=== PATIENT | male | born 1965 | race Caucasian/White ===

== ENCOUNTER 2016-10-31 10:34 | Emergency (ER) | payer MEDICAID, OTHER ==
[~2016-10-31] VITALS: Ht 165.1 cm; Wt 85.5 kg
[~2016-10-31 10:34] MED LIST: IBUP-1542 PO; TYL650R PR
[2016-10-31 10:37] VITALS: Ht 165.1 cm; Wt 85.5 kg
[2016-10-31] MEDS ORDERED: METOCLOPRAMIDE 10 MG INJ IV STA (11:14)
[2016-10-31] MEDS ORDERED: DIPHENHYDRAMINE 50 MG INJ IV STA (11:14)
[2016-10-31 11:26] LABS: ADD SCAN DIFF NO
[2016-10-31 11:30] LABS: BASOPHILS % 0.5 % (0.0-2.0); EOSINOPHILS # 0.2 10^3/ul (0.0-0.5); EOSINOPHILS % 2.6 % (0.0-7.0); HEMATOCRIT 45.5 % (42.0-52.0); HEMOGLOBIN 15.4 g/dl (14.0-18.0); LYMPHOCYTES # 1.7 10^3/ul (0.8-2.9); LYMPHOCYTES % 23.7 % (15.0-51.0); MEAN CORPUSCULAR HEMOGLOBIN 27.4 pg (29.0-33.0); MEAN CORPUSCULAR HGB CONC 33.8 g/dl (32.0-37.0); MEAN CORPUSCULAR VOLUME 80.8 fl (82.0-101.0); MEAN PLATELET VOLUME 9.7 fl (7.4-10.4); MONOCYTE # 0.8 10^3/ul (0.3-0.9); MONOCYTES % 10.3 % (0.0-11.0); NEUTROPHIL # 4.6 10^3/ul (1.6-7.5); NEUTROPHILS % 62.5 % (39.0-77.0); PLATELET COUNT 296 10^3/UL (140-415); RED BLOOD COUNT 5.63 10^6/ul (4.70-6.10); RED CELL DISTRIBUTION WIDTH 13.4 % (11.5-14.5); WHITE BLOOD COUNT 7.4 10^3/ul (4.8-10.8)
[2016-10-31] MEDS ORDERED: DEXAMETHASONE 10 MG/ML 1 ML INJ IV ONE (11:30)
[2016-10-31 11:47] LABS: CALCIUM 9.5 mg/dl (8.4-10.2); CREATININE 1.11 mg/dl (0.61-1.24); INR 0.93; POTASSIUM 4.2 mmol/L (3.5-5.1); PROTIME 12.5 Sec (12.2-14.2)
[2016-10-31 11:48] LABS: PARTIAL THROMBOPLASTIN TIME 28.5 Sec (25.0-35.0)
[2016-10-31] MEDS ORDERED: IOHEXOL 100 ML ONE (12:08)
[2016-10-31] MEDS ORDERED: SOD CHLORIDE 0.9% 100 ML ONE (12:08)
--- NOTE | 2016-10-31 12:26 | RADRPT ---
PROCEDURE: CT brain without contrast CLINICAL INDICATION: Headaches, dizziness TECHNIQUE: CT of the brain without contrast performed on a multidetector CT scanner, with multiplan ar reformats. One or more of the following dose reduction techniques were used: Automated exposure control, adjustment in mA and / or kV according to patient size, use of iterative reconstructive carrington hnique. CTDIvol = 44 mGy; DLP = 720 mGy-cm. COMPARISON: None available FINDINGS: No acute intracranial hemorrhage is identified. No extra-axial fluid collection is seen. There is no mass effect. No midline shift is identified. The ventricles and sulci are mildly enlarged compatible with volume loss. The density of the brain is unremarkable. Villafuerte-white differentiation is preserved. Osseous structures are unremarkable. Left maxillary sinus fluid level is visualized.. IMPRESSION: 1. No evidence of acute intracranial pathology. 2. Mild volume loss. 3. Left maxillary sinus disease. RPTAT: VV .Seferino Hearn MD, MD Date Time Electronically viewed and signed by .Seferino Hearn MD, on 10/31/2016 12:25 .O/
--- NOTE | 2016-10-31 13:10 | RADRPT ---
PROCEDURE: CTA Head. CLINICAL INDICATION: Headache. Dizziness. Evaluate for aneurysm. TECHNIQUE: CTA of the head was obtained with 1 mm axial images. Sagittal and coronal reformations and MIPs were provided. The administered radiation dose was CTDI vol = 54.25, 34.20 mGy, DLP = 27.1 3, 656.5 mGy-cm. Images were obtained prior following the intravenous contrast administration of 85 cc of Omnipaque 350 contrast. Coronal and sagittal as well as maximal intensity projection reformat ions were obtained. One or more of the following dose reduction techniques were used: Automated expo sure control, Adjustment of the mA and/or kV according to patient size, or Use of iterative reconstr uction technique. COMPARISON: There are no similar studies submitted for comparison. Noncontrast CT of the head from he same day. FINDINGS: CTA head: Carotid arteries: There are minimal vascular calcifications within the right supraclinoid carotid ar trisha. Patent bilaterally without evidence of stenosis. Anterior cerebral arteries: Patent bilaterally without evidence of stenosis. Middle cerebral arteries: Patent bilaterally without evidence of stenosis. Posterior cerebral arteries: Patent bilaterally without evidence of stenosis. Anterior communicating artery: Present. Posterior communicating arteries: Present bilaterally and greater on the left. The left P1 segment i s hypoplastic. Basilar artery: Patent without evidence of stenosis. Vertebral arteries: Patent bilaterally without evidence of stenosis. Vertebral artery dominance: Right. Aneurysm: There is vascular prominence of the origin of the left posterior superior communicating a rtery suggestive of a diverticulum and less likely aneurysm. Otherwise no definite aneurysm is iden tified. Venous sinuses: Patent. IMPRESSION: 1. Vascular prominence of the origin of the left posterior superior communicating artery suggestive of a diverticulum and less likely aneurysm. Otherwise no definite aneurysm is identified. 2. No evidence of intracranial arterial stenosis. Further findings as detailed above. RPTAT: PP .Aldo Reeves MD, MD Date Time Electronically viewed and signed by .Aldo Reeves MD, on 10/31/2016 13:10 .F/
--- NOTE | 2016-10-31 13:18 | ERD ---
ER Documentation Chief Complaint Date/Time DATE: 10/31/16 TIME: 13:14 Chief Complaint HEDACHE ON AND OFF X 10 DAYS , RT SIDE NUMBNESS X 15 MTS HPI This 51-year-old male presents to the emergency room for evaluation of a headache that he has had intermittently on and off for the past 10 days. The patient localizes the headache to the back of his head and states it is worse with exertion. He states that today he was having sexual intercourse with his and he felt a headache. He denies any dizziness, blurred vision, chest pain or shortness of breath associated with this. He denies any focal weakness or numbness but does state that he felt weak all over his body. The patient came to the ER for evaluation ROS All systems reviewed and are negative except as per history of present illness. Medications Home Meds Discontinued Scripts Acetaminophen* (Acephen*) 650 Mg Supp, 650 MG CA Q4H Y for PAIN, #100 SUPP Prov:RAMY MIGUEL MD 12/24/14 Ibuprofen* (Motrin*) 600 Mg Tab, 600 MG PO Q6H Y for PAIN AND OR ELEVATED TEMP, #30 Prov:RAMY MIGUEL MD 12/24/14 Allergies Allergies: Coded Allergies: No Known Allergy (Unverified , 10/31/16) PMhx/Soc Medical and Surgical Hx: Unable to obtain Hx Cardiac Disorders: Yes (cholesterol) Hx Miscellaneous Medical Probl: Yes (prostate) Hx Alcohol Use: No Hx Substance Use: No Hx Tobacco Use: Yes Smoking Status: Never smoker Physical Exam Vitals Vital Signs Date Time Temp Pulse Resp B/P Pulse Ox O2 Delivery O2 Flow Rate FiO2 10/31/16 10:37 99.1 88 18 178/118 99 Physical Exam INITIAL VITAL SIGNS: Reviewed by me GENERAL: The patient is well developed and appropriate for usual state of health in no apparent distress HEENT: Pupils equal, round, and reactive to light. EOMI. There is no scleral icterus. NECK: C-spine is soft and supple, there is no meningismus. There is no cervical lymphadenopathy. LUNGS: Clear to auscultation bilaterally. There are no rales, wheezes or rhonchi. HEART: Regular rate and rhythm, no murmurs, clicks, rubs or gallops. ABDOMEN: Soft, non-tender, non-distended. There are bowel sounds in all four quadrants. No rebound or guarding. EXTREMITIES: There is no peripheral cyanosis or edema. No focal swelling or erythema. NEUROLOGICAL: The patient moves all four extremities with 5/5 strength. Cranial nerves II - XII are intact. Normal gait. Alert and oriented SKIN: There is no apparent rash or petechiae. HEME/LYMPHATIC: There is no evidence of excessive bruising or lymphedema. PSYCHIATRIC: The patient does not appear anxious or depressed. Result Diagram: 10/31/16 1115 10/31/16 1115 Results 24 hrs Laboratory Tests Test 10/31/16 11:15 White Blood Count 7.410^3/ul Red Blood Count 5.6310^6/ul Hemoglobin 15.4g/dl Hematocrit 45.5% Mean Corpuscular Volume 80.8fl Mean Corpuscular Hemoglobin 27.4pg Mean Corpuscular Hemoglobin Concent 33.8g/dl Red Cell Distribution Width 13.4% Platelet Count 53723^3/UL Mean Platelet Volume 9.7fl Neutrophils % 62.5% Lymphocytes % 23.7% Monocytes % 10.3% Eosinophils % 2.6% Basophils % 0.5% Nucleated Red Blood Cells % 0.0/100WBC Neutrophils # 4.610^3/ul Lymphocytes # 1.710^3/ul Monocytes # 0.810^3/ul Eosinophils # 0.210^3/ul Basophils # 0.010^3/ul Nucleated Red Blood Cells # 0.010^3/ul Prothrombin Time 12.5Sec Prothrombin Time Ratio 1.0 INR International Normalized Ratio 0.93 Activated Partial Thromboplast Time 28.5Sec Sodium Level 144mmol/L Potassium Level 4.2mmol/L Chloride Level 102mmol/L Carbon Dioxide Level 29mmol/L Anion Gap 17 Blood Urea Nitrogen 11mg/dl Creatinine 1.11mg/dl Glucose Level 91mg/dl Calcium Level 9.5mg/dl Troponin I < 0.012ng/ml Current Medications Medications (Trade) Dose Ordered Sig/[place] Route PRN Reason Start Time Stop Time Status Last Admin Dose Admin Metoclopramide HCl (Reglan) 10 mg ONCE STAT IV 10/31/16 11:14 10/31/16 11:17 DC 10/31/16 11:42 Diphenhydramine HCl (Benadryl) 25 mg ONCE STAT IV 10/31/16 11:14 10/31/16 11:17 DC 10/31/16 11:42 Dexamethasone (Decadron) 10 mg ONCE ONCE IV 10/31/16 11:30 10/31/16 11:31 DC 10/31/16 11:42 IV Flush 10 ml 10 ml STK-MED ONCE .ROUTE 10/31/16 12:08 10/31/16 12:09 DC Sodium Chloride 100 ml @ ud STK-MED ONCE .ROUTE 10/31/16 12:08 10/31/16 12:09 DC Iohexol (Omnipaque) 100 ml @ ud STK-MED ONCE .ROUTE 10/31/16 12:08 10/31/16 12:09 DC Procedures/MDM EKG: Rate/Rhythm: [Normal Sinus Rhythm] QRS, ST, T-waves: [No changes consistent w/ acute ischemia] Impression: [No evidence of ischemia or arrhythmia] CTA brain without: 1. Vascular prominence of the origin of the left posterior superior communicating artery suggestive of a diverticulum and less likely aneurysm. Otherwise no definite aneurysm is identified. 2. No evidence of intracranial arterial stenosis. CT brain: 1. No evidence of acute intracranial pathology. 2. Mild volume loss. 3. Left maxillary sinus disease. This 51-year-old male presents to the emergency room for evaluation of a headache. When I evaluated this patient I had no focal neurological deficits. He was nontoxic-appearing and he was hemodynamically stable. Lab work was obtained including EKG which is nonischemic. CT and CT of the brain were obtained to rule out any bleed or aneurysm. 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 The patient was given Reglan, Decadron prior to CAT scan. When I reevaluated this patient to notify him of his lab results and his imaging results the patient states his pain is completely resolved. The patient did have mild hypertension when he first arrived to the emergency room however his blood pressure now is 147/84. He has no focal neurological deficits and will be discharged at this time with instructions to follow-up with his primary care physician for management of hypertension. He will be discharged at this time with a prescription for Fioricet. Patient's blood pressure was elevated (>120/80) but appears stable without evidence of hypertension emergency or urgency. The patient was counseled about the risks of hypertension and urged to pursue outpatient monitoring and therapy within a week with their primary care physician. Departure Diagnosis: Primary Impression: Cephalgia Additional Impression: Hypertension Condition: Stable CHRISTIAN MONTENEGRO DO Oct 31, 2016 13:17
[2016-10-31] MEDS ORDERED: BUTA1CAP38 PO (13:19)
[2016-10-31 13:31] VITALS: BP 156/88; PULSE 77; RESP 20; TEMP 98.3
== END 2016-10-31 13:35 | disposition home or self-care (01) ==
LOC: E/R 10:34
DX: R51 Headache (principal); R40.2252 Coma scale, best verbal response, oriented, at arrival to emergency department; I10 Essential (primary) hypertension; R40.2142 Coma scale, eyes open, spontaneous, at arrival to emergency department; R40.2362 Coma scale, best motor response, obeys commands, at arrival to emergency department; Z87.891 Personal history of nicotine dependence
CPT/HCPCS: 70450; 70496; 80048; 84484; 85025; 85610; 85730; 93005; 96374; 96375; J1100; J1200; J2765; Q9967; Z7502; Z7610

== ENCOUNTER 2018-04-28 13:28 | Emergency (ER) | payer SELFPAY ==
[~2018-04-28] VITALS: Wt 84.3 kg
[~2018-04-28 13:28] MED LIST changes: +BUTA1CAP38 PO; -IBUP-1542 PO; -TYL650R PR
[2018-04-28 13:37] VITALS: BP 134/80; PULSE 86; RESP 22
[2018-04-28] MEDS ORDERED: IBUP-1542 PO (15:14)
--- NOTE | 2018-04-28 15:19 | ERD ---
ER Documentation Chief Complaint Chief Complaint L testicular pain x3mo worsening; to L lower back and LLE. denies dysuria. HPI 52-year-old male presents with left lower back or flank pain rating to the left mid abdomen and groin for the last 3 months. Denies any testicular pain or swelling. Denies any fevers, vomiting, history of trauma. Denies any hematuria dysuria. ROS All systems reviewed and are negative except as per history of present illness. Medications Home Meds Active Scripts Ibuprofen* (Motrin*) 600 Mg Tab, 600 MG PO Q6, #20 TAB Prov:GHANSHYAM PIERRE MD 04/28/18 Pmsvyszsvz-Rkpkfhscfoygp-Hyzcxqbx* (Fioricet*) 50-300-40 Mg Capsule, 1 CAP PO Q8 PRN for HEADACHE, #20 CAP Prov:CHRISTIAN MONTENEGRO DO 10/31/16 Allergies Allergies: Coded Allergies: No Known Allergy (Unverified , 10/31/16) PMhx/Soc Hx Cardiac Disorders: Yes (cholesterol) Hx Miscellaneous Medical Probl: Yes (prostate) Hx Alcohol Use: No Hx Substance Use: No Hx Tobacco Use: Yes Smoking Status: Unknown if ever smoked FmHx Family History: No diabetes, No coronary disease, No other Physical Exam Vitals Vital Signs Date Temp Pulse Resp B/P (MAP) Pulse Ox O2 O2 Flow FiO2 Time Delivery Rate 04/28/18 97.5 86 22 134/80 99 13:37 (98) Physical Exam Const: No acute distress Head: Atraumatic Eyes: Normal Conjunctiva ENT: Normal External Ears, Nose and Mouth. Neck: Full range of motion. No meningismus. Resp: Clear to auscultation bilaterally Cardio: Regular rate and rhythm, no murmurs Abd: Soft, non tender, non distended. Normal bowel sounds. Mild tenderness left groin. No appreciable hernias. Testicles nontender normal size and descended bilaterally. Skin: No petechiae or rashes Back: No midline tenderness. Tenderness mostly beginning in the left L2-L3 area. Ext: No cyanosis, or edema Neur: Awake and alert Psych: Normal Mood and Affect Results 24 hrs Laboratory Tests Test 04/28/18 14:15 Urine Color YELLOW Urine Clarity CLEAR Urine pH 5.0 Urine Specific [place] 1.012 Urine Ketones NEGATIVE mg/dL Urine Nitrite NEGATIVE mg/dL Urine Bilirubin NEGATIVE mg/dL Urine Urobilinogen NEGATIVE mg/dL Urine Leukocyte Esterase NEGATIVE Evans/ul Urine Microscopic RBC 3 /HPF Urine Microscopic WBC 0 /HPF Urine Hemoglobin 2+ mg/dL Urine Glucose NEGATIVE mg/dL Urine Total Protein NEGATIVE mg/dl Procedures/MDM Patient presents with left sided flank abdominal pain rating to the left groin for the last 3 months. Urine shows red blood cells and 2+ hemoglobin. CT abdomen pelvis shows no acute abnormalities no evidence of urolithiasis. Patient has microscopic hematuria of uncertain etiology. He may have muscular skeletal pain but recommending outpatient evaluation and treatment by primary doctor for microscopic hematuria. He has no elevated blood pressure. He will be treated with ibuprofen, instructions for primary care follow-up and return precautions for fevers, vomiting, new worsening symptoms. No signs to suggest torsion, signs of surgical abdomen, sepsis. The patient was stable with no new complaints during the ER course. Clinically, there is no current evidence to suggest meningitis, sepsis, acute abdomen, pneumonia, stroke, acute coronary syndrome, pulmonary embolism, aortic dissection or any other emergent condition appearing to require further evaluation or hospitalization. Patient counseled regarding my diagnostic impression and care plan. Prior to discharge all questions answered. Pt agrees with treatment plan and understands strict return precautions. Pt is instructed to follow up with primary care provider within 24-48 hours. Precautionary instructions provided including instructions to return to the ER if not improving or for any worsening or changing symptoms or concerns. Departure Diagnosis: Primary Impression: Left flank pain Condition: Stable Patient Instructions: Flank Pain, Uncertain Cause, Hematuria Referrals: NADEEM YA MD Additional Instructions: There is very slight amount of blood in urine. Recommend see primary doctor possibly urology for persistent symptoms. Recheck otherwise for fevers, vomiting, worsening pain, new worsening symptoms. GHANSHYAM PIERRE MD Apr 28, 2018 15:19
== END 2018-04-28 15:55 | disposition home or self-care (01) ==
LOC: FTE 13:28
DX: R10.32 Left lower quadrant pain (principal)
CPT/HCPCS: 74176; 81001